=== PATIENT | female | born 1955 | race Caucasian/White ===

== ENCOUNTER 2024-07-19 11:52 | Emergency (ER) | payer OTHER, SELFPAY ==
[2024-07-19 11:53] VITALS: BMI 32.3
[2024-07-19 12:29] VITALS: BP 177/79; PULSE 77; RESP 18; TEMP 36.8; O2SAT 97; BMI 32.3
--- NOTE | 2024-07-19 12:33 | XR_ITS ---
Examination: CT cervical spine without contrast 2-D sagittal reconstructions 2-D coronal reconstructions 3-D reconstructions. Exam date and time:July 19, 2024 1313 hours INDICATIONS: Patient fell 3 days ago with injury to the neck, neck pain CTDI:vol (mGy) 8.32 DLP: (mGycm) 179 Technique: Multiple 2 mm axial sections of the cervical spine have been obtained. The coronal and sagittal reconstructions have been obtained. 3-D reconstructions have been obtained. Low dose protocols were performed. One or more of the following dose reduction techniques were used; automated exposure control, adjustment of the mA and/or KV according to patient size, use of iterative reconstruction technique. Findings: Axial sections demonstrate intact base of the skull. C1 exhibit satisfactory relationship to the odontoid. No acute cervical vertebral body fracture seen. Alignment posterior spinous processes satisfactory. Impression: No acute cervical fracture.
--- NOTE | 2024-07-19 12:33 | XR_ITS ---
Examination: CT chest, without intravenous contrast. CT abdomen, without intravenous contrast. CT pelvis, without intravenous contrast. 2-D sagittal and coronal reconstructions. 3-D reconstructions. Date and time of exam:July 19, 2024 1116 hours INDICATIONS: Patient fell 3 days ago with injury to the chest and abdomen, chest pain abdomen pain CTDI vol (mgy) 11 DLP (MGycm)821 Technique: Multiple CT images, 3.0 mm slice thickness, obtained chest, abdomen, pelvis, with the high-resolution 64 slice scanner.. Sagittal and coronal 2-D reconstructions are obtained. 3-D reconstructions Low dose protocols were performed. One or more of the following dose reduction techniques were used; automated exposure control, adjustment of the mA and/or KV according to patient size, use of iterative reconstruction technique. Findings: Thoracic aorta pulmonary arteries appear intact on this noncontrast limited study No hemopericardium No pneumothorax or hemothorax The manubrium, the sternum, thoracic and lumbar vertebral bodies appear intact, grade 1 anterolisthesis L4 on L5 Nondisplaced old appearing fractures right fourth and fifth ribs anteriorly but clinical correlation advised No liver splenic or renal laceration, no perinephric hematoma Abdominal aorta intact No free blood in the abdomen or pelvis Normal appendix Negative for pneumoperitoneum Urinary bladder intact Hips bones of the pelvis intact IMPRESSION: Thoracic aorta pulmonary arteries intact No hemopericardium, pneumothorax, pulmonary contusion or hemothorax No abdominal parenchymal laceration Abdominal aorta intact No free blood in the abdomen or pelvis Nondisplaced old appearing fractures right fourth and fifth ribs anteriorly but clinical correlation advised
--- NOTE | 2024-07-19 12:33 | XR_ITS ---
Examination: CT brain head without contrast. 2-D sagittal coronal reconstructions Date and time of exam:July 19, 2024 at 1313 hours INDICATIONS: Patient fell 3 days ago with injury to the head, head pain CTDI: vol (mGy):52.9 DLP: (mGycm):1079 Technique: Multiple CT axial sections of the brain have been obtained, 5 mm slice thickness. Contrast has not been administered. 2-D sagittal, coronal reconstructions have been obtained Low dose protocols were performed. One or more of the following dose reduction techniques were used; automated exposure control, adjustment of the mA and/or KV according to patient size, use of iterative reconstruction technique. Findings: No significant ventricular enlargement. Intra-axial or extra-axial hemorrhage density is not seen. No mass effect or midline shift Basal cisterns are not remarkable. Fourth ventricle is midline. Cranial vault intact. Impression: Negative for acute hemorrhage, mass effect or midline shift
--- NOTE | 2024-07-19 12:33 | PD.EDRME ---
Rapid Medical Screening Exam RME Arrival date/time: 07/19/24 11:52 68-year-old female presents emergency department today saying she riding her horse on Thursday patient reports being bucked off her horse patient reports since then she has been having headache and neck pain as well as generalized bodyaches Chief Complaint: Headache Vital signs: Vital Signs Temperature 98.2 F 07/19/24 12:29 Pulse Rate 77 07/19/24 12:29 Respiratory Rate 18 07/19/24 12:29 Blood Pressure 177/79 H 07/19/24 12:29 Pulse Oximetry (%) 97 07/19/24 12:29 Oxygen Delivery Method Room Air 07/19/24 12:29
[2024-07-19 13:22] LABS: Basophils # (Auto) 0.1 Thou/mm3 (0.0-0.2); Basophils % (Auto) 1 % (0-2.5); Eosinophils # (Auto) 0.1 Thou/mm3 (0.0-0.5); Eosinophils % (Auto) 2 % (0-10); Hematocrit 40.6 % (36.0-46.0); Hemoglobin 13.7 g/dL (12.0-16.0); Immature Granulocytes % (Auto) 0 % (0-0); Immature Granulocytes Auto 0.01 Thou/mm3 (0.00-0.00); Lymphocytes # (Auto) 2.2 Thou/mm3 (1.0-4.8); Lymphocytes % (Auto) 31 % (10-50); Mean Corpuscular HGB Conc 33.7 g/dl (31.0-37.0); Mean Corpuscular Hemoglobin 31.1 pg (25.0-35.0); Mean Corpuscular Volume 92 fL (80-100); Monocytes # (Auto) 0.6 Thou/mm3 (0.0-0.8); Monocytes % (Auto) 8 % (0-12); Neutrophils # (Auto) 4.1 Thou/mm3 (1.8-7.7); Neutrophils % (Auto) 59 % (37-80); Nucleated Red Blood Cell % 0 /100 WBC (0); Platelet Count 217 Thou/mm3 (140-440); RDW Standard Deviation 43.3 fL (36.4-46.3)
[2024-07-19 13:35] LABS: INR 0.9 (0.9-1.3); Partial Thromboplastin Time 26.1 Seconds (22.0-36.0); Prothrombin Time 10.4 Seconds (9.0-12.2)
[2024-07-19 13:55] LABS: Alanine Aminotransferase 15 U/L (10-49); Albumin, Serum 4.5 gm/dL (3.4-4.8); Albumin/Globulin Ratio 1.7 (1.2-2.2); Alkaline Phosphatase 84 U/L (46-116); Anion Gap 10 (7-16); Aspartate Amino Transferase 26 U/L (0-34); BUN/Creatinine Ratio 14 Ratio (12-20); Bilirubin,Total 0.8 mg/dL (0.3-1.2); Blood Urea Nitrogen 13 mg/dL (9-23); Calcium 10.1 mg/dL (8.3-10.6); Calcium (Corrected) 10.1 mg/dL (8.5-10.1); Chloride 107 mMol/L (98-107); Creatinine (Component) 0.9 mg/dL (0.6-1.3); Estimated Creatinine Clearance 66.9 mL/min (>60); Globulin 2.6 gm/dL (2.3-3.5); Glucose 90 mg/dL (74-106); Osmolality,Calculated 283 (275-295); Sodium 142 mMol/L (136-145); Total Protein 7.1 gm/dL (5.7-8.2); eGFR > 60 See Note
--- NOTE | 2024-07-19 14:00 | EDNOTE_ITS ---
ED Headache RME/HPI General Chief Complaint: Headache Stated Complaint: HEADACHE AND DIZZY BUCKED OFF HORSE Time Seen by Provider: 07/19/24 14:00 Arrival date/time: 07/19/24 11:52 A 68-year-old female presented to the emergency room with complaints of a head and back injury sustained from a fall off a horse last Thursday. The patient reports experiencing dizziness when reaching for something, which raised her concern. She did not seek medical evaluation after the incident and resumed her normal activities. LOCATION: generalized and diffuse headache SEVERITY: Symptoms are described as being severe with limitations on activities of daily living QUALITY: Symptoms are described as being dull or achy CONTEXT: The patient is unable to identify any inciting events. DURATION/TIMING: The symptoms started approximately one day ago and have been constant since then and have been progressive getting worse. ASSOCIATED SYMPTOMS: dizziness, headache MODIFYING FACTORS: The patient is unable to identify any alleviating or aggravating symptoms. PERTINENT ROS: Headache is gradual in onset, not maximal intensity at onset, not associated with syncope or presyncope, not the first or the worst, not anticoagulant use, no associated focal neurological deficits, denies associated neck pain, no recent fevers, no unexplained rashes, no recent foreign travel, immunized, no unexplained nausea or vomiting. REVIEW OF SYSTEMS: See History of Present Illness - with the exception of those mentioned in the history of present illness, all other systems reviewed and reported as negative GENERAL: In general the patient is awake, interactive, in an emergency department gurney. HEAD/EYES/EARS/NOSE/THROAT: normo-cephalic, atraumatic, mucus membranes are moist, anicteric, palpebral conjunctiva is pink, trachea is midline. CARDIOVASCULAR: regular rate and regular rhythm, no murmurs, heart sounds are not distant, strong pulses in all four extremities that are equal and symmetric bilateral upper and lower extremities, normal capillary refill. CHEST/PULMONARY: normal chest rise and fall, good air movement, clear to auscultation bilaterally, normal inspiratory to expiratory ratios without evidence of respiratory distress. NECK: No midline/Paraspinal tenderness, no step off ROM/Strenght intact No Kernig and bruzinski sign. No trauma ABDOMEN: soft, not tender, no masses appreciated BACK: low paraspinal tenderness normal range of motion without pain. NEUROLOGICAL: cranio-facial features are symmetric, moves all four extremities equally without obvious limitations or weakness. EXTREMITY: no tenderness to palpation over the long bones or large joints of the bilateral upper and lower extremities, no joint swelling, no joint erythema, no signs of trauma, no unilateral leg swelling and no peripheral edema. SKIN: warm, dry, well-perfused, no jaundice, no rash, no telangiectasias or petechia. PSYCH: calm, cooperative, no evidence of psychosis or agitation RME / HPI RME / HPI Narrative: 07/19/24 11:52 68-year-old female presents emergency department today saying she riding her horse on Thursday patient reports being bucked off her horse patient reports since then she has been having headache and neck pain as well as generalized bodyaches Related Data Previous Rx's ?Medication ?Instructions ?Recorded Hydrocodone/Acetaminophen * (NORCO 1 tab PO Q6HR PRN P AIN #30 tabs 04/17/16 5/325 *) Allergies Allergy/AdvReac Type Severity Reaction Status Date / Time NKA* Allergy Uncoded 07/19/24 11:55 Course Course Course Narrative: review ct, basic labs Quality Measures none Orders Category Date Time Status CT cervical spine wo con Stat Exams 07/19/24 12:[address] chest abdomen pelvis wo Stat Exams 07/19/24 12:[address] head/brain wo con Stat Exams 07/19/24 12:33 Completed CBC Stat Lab 07/19/24 12:50 Completed Comprehensive Metabolic Panel Stat Lab 07/19/24 12:50 Completed Partial Thromboplastin Time Stat Lab 07/19/24 12:50 Completed Prothrombin Time with INR Stat Lab 07/19/24 12:50 Completed Reevaluation(s) Reevaluation #1: pt is comfortable to go home and continue conservative treatment Vital Signs Vital signs: Vital Signs Temperature 98.2 F 07/19/24 12:29 Pulse Rate 77 07/19/24 12:29 Respiratory Rate 18 07/19/24 12:29 Blood Pressure 177/79 H 07/19/24 12:29 Pulse Oximetry (%) 97 07/19/24 12:29 Oxygen Delivery Method Room Air 07/19/24 12:29 Headache MDM Narrative MDM Narrative:: MDM (Medical Decision Making): The patient was evaluated for a head injury following a fall. A CT scan of the head, neck, and chest/abdomen was performed, with no acute findings. bbasic labs were also ordered and returned within normal limits. The patient did not seek medical attention after the incident and resumed her normal routine, which most likely contributed to the exacerbation of her post-concussion symptoms. Given the absence of acute findings, the patient was placed on concussion protocol and advised to take Tylenol or Motrin as needed for pain management. Close follow-up is recommended if symptoms persist or worsen. Patient data External records reviewed:: [facility] previous records Clinical information provided by:: patient Social determinants that could affect healthcare access:: none Patient has the following chronic illnesses:: n/a How is presenting disease/condition affected by chronic disease/condition?: no chronic disease Evaluation data The following diagnostics were reviewed and interpreted by me:: lab results, radiology exam(s) and EKG tracing(s) Lab and/or radiology exams considered but not ordered:: n/a Interpretation Summary: ct:no acute findings cbc/cmp no acute findings Medications / Prescriptions Medications or Prescriptions considered but not ordered:: n/a Medication administrations:: n/a Consultations Consultation(s) initiated? (list below): No Diagnosis Differential diagnosis headache: migraine, tension headache, subarachnoid hemorrhage, headache, postconcussion syndrome and other (fracture vs contusion ) Most likely diagnosis given after review of the tests above:: head injury , contusion , post concussion syndrome Admission Indicated Admission indicated?: not indicated Admission Request Was there a request for admission?: No Disposition Plan Disposition Plan: Discharge Discharge Attestation Discharge Attestation: The patient and all family members were given an opportunity to ask questions and understood the discharge instructions. Discharge instructions specifically effects, indications for sooner follow up or return to the emergency department, and the expected course of current diagnosis. Patient condition: Stable Discharge Plan Plan Patient Disposition: HOME (Self Care) Prescriptions/Referrals Prescriptions/Med Rec: No Action Hydrocodone/Acetaminophen * (NORCO 5/325 *) 1 TAB tablet 1 tab PO Q6HR PRN (Reason: PAIN) Qty: 30 0RF Referrals: No Primary/Family,Physician [Primary Care Provider] - In 1 week Problem List Clinical Impression: Post-concussion headache, Coccyx contusion Patient/Caregiver Discharge Instructions Education Materials: Self-Care for Headaches, ED Coccyx or Sacrum Contusion Print Language: Luxem[place]ish Stand Alone Forms: [employer]pa Award Info., Patient Portal Info Letter
== END 2024-07-19 14:20 | disposition home or self-care (01) ==
PROVIDERS: Nurse Practitioner Primary Care; Emergency Provider Emergency Medicine
DX: G44.309 Post-traumatic headache, unspecified, not intractable (principal); S30.0XXA Contusion of lower back and pelvis, initial encounter; V80.010A Animal-rider injured by fall from or being thrown from horse in noncollision accident, initial encounter; Y93.52 Activity, horseback riding
CPT/HCPCS: 36415; 70450; 71250; 72125; 74176; 80053; 85025; 85610; 85730; 99284